=== PATIENT | male | born 1965 | race American Indian/Alaskan Native ===

== ENCOUNTER 2017-03-07 13:35 | Emergency (ER) | payer OTHER ==
[2017-03-07 14:16] VITALS: BP 164/116; PULSE 90; RESP 16; TEMP 97.3; O2SAT 99
--- NOTE | 2017-03-07 15:23 | RAD ---
PROCEDURE: Right Ankle Radiographs. HISTORY: Pain/swelling s/p injury 3 days ago COMPARISON: None FINDINGS: BONES: Normal. No fractureThere is a minimally displaced avulsion injury of the tip of the medial malleolus. There is a fracture extending obliquely through the medial distal tibia, nondisplaced. There is a nondisplaced posterior malleolar fracture. There is no fibular fracture. . There is a small os ossific density immediately adjacent to the tip of the base of the 5th metatarsal, seen only in the lateral projection. This could represent a very small avulsion injury but is atypical in appearance. Incidental note is made of a small plantar calcaneal spur. JOINTS: The ankle mortise is preserved. The articular surfaces are smooth. SOFT TISSUES: There is medial soft tissue swelling. OTHER FINDINGS: None. IMPRESSION: Small avulsion fracture of the tip of the medial malleolus. Oblique fracture distal tibia, medial side. Nondisplaced posterior malleolar fracture. Questionable small avulsion fracture at the base of the 5th metatarsal seen only in lateral view.
--- NOTE | 2017-03-07 16:15 | C.PDOC ---
History Of Present Illness Pt injured his right ankle at work by having it snag on a fence and twist. Time Seen by Provider: 03/07/17 14:33 Chief Complaint (Nursing): Lower Extremity Problem/Injury History Per: Patient, Family Onset/Duration Of Symptoms: Days (3) Current Symptoms Are (Timing): Still Present Severity: Moderate Additional History Per: Prior Records - Ankle/Foot Description Of Injury: Twisted Currently Unable To: Bear Weight Alleviating Factor(s): Ice Therapy, Elevation, OTC Pain Medication Past Medical History Reviewed: Historical Data, Nursing Documentation, Vital Signs Vital Signs: Last Vital Signs Temp 97.3 F L 03/07/17 14:14 Pulse 90 03/07/17 14:14 Resp 16 03/07/17 14:14 BP 164/116 H 03/07/17 14:14 Pulse Ox 99 03/07/17 14:14 - Medical History PMH: No Chronic Diseases Family History: States: Unknown Family Hx - Social History Hx Alcohol Use: No Hx Substance Use: No - Immunization History Hx Tetanus Toxoid Vaccination: No Hx Influenza Vaccination: No Hx Pneumococcal Vaccination: No Review Of Systems Except As Marked, All Systems Reviewed And Found Negative. Constitutional: Negative for: Fever Cardiovascular: Negative for: Chest Pain Respiratory: Negative for: Shortness of Breath Gastrointestinal: Negative for: Vomiting, Abdominal Pain Musculoskeletal: Negative for: Neck Pain, Back Pain Skin: Negative for: Rash Neurological: Negative for: Weakness, Numbness Physical Exam - Physical Exam Appears: Non-toxic, No Acute Distress Skin: Normal Color, Warm, Dry Head: Atraumatic, Normacephalic Eye(s): bilateral: PERRL, EOMI Neck: Normal ROM, Supple Extremity: Normal ROM, Tenderness (medial right ankle), Capillary Refill (wnl), No Deformity, Swelling (right ankle) Pulses: Right Dorsalis Pedis: Normal Neurological/Psych: Oriented x3, Normal Motor, Normal Sensation ED Course And Treatment O2 Sat by Pulse Oximetry: 99 Pulse Ox Interpretation: Normal - Other Rad Right ankle x-rays X-Ray: Viewed By Me, Read By Radiologist Interpretation: IMPRESSION: Small avulsion fracture of the tip of the medial malleolus. Oblique fracture distal tibia, medial side. Nondisplaced posterior malleolar fracture. Questionable small avulsion fracture at the base of the 5th metatarsal seen only in lateral view. Progress Note: Posterior splint was place on right leg by tissue technologist and checked by me. Pt was given crutches by PT. Disposition Counseled Patient/Family Regarding: Studies Performed, Diagnosis, Need For Followup, Rx Given - Disposition Referrals: Phil Go III, MD [Staff Provider] - Disposition: HOME/ ROUTINE Disposition Time: 16:17 Condition: FAIR Additional Instructions: Use crutches to stay off right foot. Follow up with the orthopedic surgeon within 1 to 2 weeks. Return to the ER if you develop worsening of symptoms or if you have any other concerns. Prescriptions: Naproxen [Naprosyn] 1 tab PO BID PRN #20 tab PRN Reason: Pain Instructions: Ankle Fracture (ED), Splint Care (ED), Crutch Instructions (ED) - Clinical Impression Clinical Impression: Closed right ankle fracture
== END 2017-03-07 16:30 | disposition home or self-care (01) ==
LOC: C.ER 13:35
DX: S82.54XA Nondisplaced fracture of medial malleolus of right tibia, initial encounter for closed fracture (principal); X58.XXXA Exposure to other specified factors, initial encounter
CPT/HCPCS: 29515; 73610; 97116; 97161; 99285; G8978; G8979; G8980

== ENCOUNTER 2017-04-26 13:57 | Emergency (ER) | payer OTHER ==
[2017-04-26 14:45] VITALS: BMI 26.6
[2017-04-26 14:47] VITALS: O2SAT 100
--- NOTE | 2017-04-26 15:48 | C.PDOC ---
History Of Present Illness 51 year old male presents to the ED for evaluation of right ankle pain. Patient suffered a right ankle fracture on 03/07/17, was evaluated in ED and advised to follow up with orthopedic care. Patient states he was unable to follow up because the orthopedist lives in [place] and patient does not have a car. Patient ran out of Naproxen and has been experiencing pain for 1 week. He also reports an odor coming from his splint. He denies any new injuries. Time Seen by Provider: 04/26/17 15:28 Chief Complaint (Nursing): Lower Extremity Problem/Injury History Per: Patient History/Exam Limitations: no limitations Onset/Duration Of Symptoms: Other (1 week ) Current Symptoms Are (Timing): Still Present Additional History Per: Patient Past Medical History Reviewed: Historical Data, Nursing Documentation, Vital Signs Vital Signs: Last Vital Signs Temp 98.8 F 04/26/17 16:45 Pulse 90 04/26/17 16:45 Resp 18 04/26/17 16:45 BP 176/125 H 04/26/17 16:45 Pulse Ox 100 04/26/17 18:25 - Medical History PMH: HTN Surgical History: No Surg Hx Family History: States: Unknown Family Hx - Social History Hx Alcohol Use: No Hx Substance Use: No - Immunization History Hx Tetanus Toxoid Vaccination: Yes Hx Influenza Vaccination: No Hx Pneumococcal Vaccination: No Review Of Systems Musculoskeletal: Positive for: Other (right ankle pain ) Physical Exam - Physical Exam Appears: Non-toxic, No Acute Distress Skin: Normal Color, Warm, Dry Head: Atraumatic, Normacephalic Eye(s): bilateral: Normal Inspection, EOMI Neck: Normal ROM Extremity: Tenderness (medial ankle, mild), Capillary Refill (less than 2 seconds ), Swelling (to medial aspect of right ankle ) Pulses: Right Dorsalis Pedis: Normal Neurological/Psych: Oriented x3, Normal Speech, Normal Sensation Gait: Other (using crutches) ED Course And Treatment O2 Sat by Pulse Oximetry: 100 (on RA) Pulse Ox Interpretation: Normal - Other Rad right ankle XR X-Ray: Interpreted by Me, Viewed By Me, Read By Radiologist Interpretation: PROCEDURE: Right Ankle Radiographs. HISTORY: s/p fx , repeat. COMPARISON: Right ankle radiographs performed 03/07/17. FINDINGS: BONES: Lucent fracture line is identified with in the distal tibia extending intraarticularly. Interval healing of posterior malleoli or fracture. Re- identified evulsion fracture fragment, tip medial malleolus. Questionable small avulsion fracture fragment re- identified base of the 5th metatarsal seen only on lateral view. Small calcaneal enthesophyte. Small heel spur. JOINTS: No dislocation. SOFT TISSUES: Unremarkable. No evidence of radiopaque foreign body. OTHER FINDINGS: None. IMPRESSION: Lucent fracture line identified within the distal tibia extending intraarticularly. Interval healing posterior malleolar fracture. Re-identified evulsion fracture fragment, tip medial malleolus. Questionable small avulsion fracture fragment re- identified base of the 5th metatarsal seen only on lateral view. Medical Decision Making Medical Decision Making: Right ankle XR repeated. Catapres PO administered for HTN Spoke with podiatry resident who states patient can follow up in the clinic on Sunday04/30/17. Posterior leg splint applied by CP and checked by me Disposition Counseled Patient/Family Regarding: Diagnosis, Need For Followup, Rx Given - Disposition Referrals: [facility] [Outside] Disposition: HOME/ ROUTINE Disposition Time: 17:00 Condition: STABLE Additional Instructions: follow up in the Podiatry clinic on Sunday04/30/17 in the morning take pain medicine as needed You also need to follow up with clinic regarding your blood pressure take medication daily Prescriptions: amLODIPine [Norvasc] 2.5 mg PO DAILY #15 tab Naproxen [Naprosyn] 1 tab PO BID PRN #25 tab PRN Reason: Pain Instructions: Ankle Fracture (ED), Splint Care (ED) Forms: [employer] ([place]) - POA Present On Arrival: None - Clinical Impression Clinical Impression: Closed right ankle fracture, HTN (hypertension), Aftercare for cast or splint check or change - PA / PUBLIC ACCOUNTANT / Resident Statement MD/DO has reviewed & agrees with the documentation as recorded. - Scribe Statement The provider has reviewed the documentation as recorded by the Scribe (Karyn Mariscal) All medical record entries made by the Scribe were at my direction and personally dictated by me. I have reviewed the chart and agree that the record accurately reflects my personal performance of the history, physical exam, medical decision making, and the department course for this patient. I have also personally directed, reviewed, and agree with the discharge instructions and disposition.
--- NOTE | 2017-04-26 16:23 | RAD ---
PROCEDURE: Right Ankle Radiographs. HISTORY: s/p fx , repeat COMPARISON: Right ankle radiographs performed 03/07/17 FINDINGS: BONES: Lucent fracture line is identified with in the distal tibia extending intraarticularly. Interval healing of posterior malleoli or fracture. Re-identified evulsion fracture fragment, tip medial malleolus. Questionable small avulsion fracture fragment re- identified base of the 5th metatarsal seen only on lateral view. Small calcaneal enthesophyte. Small heel spur. JOINTS: No dislocation. SOFT TISSUES: Unremarkable. No evidence of radiopaque foreign body. OTHER FINDINGS: None. IMPRESSION: Lucent fracture line identified within the distal tibia extending intraarticularly. Interval healing posterior malleolar fracture. Re-identified evulsion fracture fragment, tip medial malleolus. Questionable small avulsion fracture fragment re- identified base of the 5th metatarsal seen only on lateral view.
[2017-04-26 17:06] VITALS: BP 176/125; PULSE 90; RESP 18; TEMP 98.8
== END 2017-04-26 17:10 | disposition home or self-care (01) ==
LOC: C.ER 13:57
DX: S82.54XD Nondisplaced fracture of medial malleolus of right tibia, subsequent encounter for closed fracture with routine healing (principal); X58.XXXD Exposure to other specified factors, subsequent encounter; I10 Essential (primary) hypertension

== ENCOUNTER 2018-07-12 15:01 | Outpatient (CLI) | payer OTHER | END 2018-07-12 15:02 | disposition home or self-care (01) | LOC: C.RADH 15:01 | DX: I10 Essential (primary) hypertension (principal) ==